=== PATIENT | male | born 1975 | race African-American/Black ===

== ENCOUNTER 2017-07-17 07:30 | Emergency (ER) | payer BC ==
[~2017-07-17] VITALS: Ht 189.2 cm; Wt 97.8 kg
[2017-07-17 07:45] VITALS: BP 135/90
--- NOTE | 2017-07-17 08:01 | PHYS DOC ---
Past Medical History Past Medical History: No Pertinent History Past Surgical History: No Surgical History Alcohol Use: Occasionally Drug Use: None Adult General Chief Complaint Chief Complaint: LOWER BACK PAIN OR INJURY HPI HPI Patient is a 42 year old male who presents with right side lower back pain that is shooting down his buttock and into his leg. He states that this began 2 days ago and has worsened. Tylenol has not helped with the pain. He states that he does not remember having a specific injury but does work as a [employer] and has been lifting heavy patients over the past week. He denies urinary retention, foot drop or any other illness or injury. Review of Systems Review of Systems Constitutional: Denies fever or chills [] Respiratory: Denies cough or shortness of breath [] Cardiovascular: No additional information not addressed in HPI [] GI: Denies abdominal pain, nausea, vomiting, bloody stools or diarrhea [] : Denies dysuria or hematuria [] Musculoskeletal: See history of present illness Integument: Denies rash or skin lesions [] Neurologic: Denies headache, focal weakness or sensory changes [] Endocrine: Denies polyuria or polydipsia [] Allergies Allergies Allergies Coded Allergies Type Severity Reaction Last Updated Verified No Known Drug Allergies 01/23/14 No Physical Exam Physical Exam Constitutional: Well developed, well nourished, no acute distress, non-toxic appearance. [ Neck: Normal range of motion, no tenderness, supple, no stridor. [] Cardiovascular:Heart rate regular rhythm, no murmur [] Lungs & Thorax: Bilateral breath sounds clear to auscultation [] Abdomen: Bowel sounds normal, soft, no tenderness, no masses, no pulsatile masses. [] Skin: Warm, dry, no erythema, no rash. [] Back:Tenderness over SI joint extending into the right buttock, pushes and pulls normal and equal, no CVA tenderness. [] Extremities: No tenderness, no cyanosis, no clubbing, ROM intact, no edema. [] Neurologic: Alert and oriented X 3, normal motor function, normal sensory function, no focal deficits noted. [] Psychologic: Affect normal, judgement normal, mood normal. [] Current Patient Data Vital Signs Vital Signs Date Time Temp Pulse Resp B/P (MAP) Pulse Ox O2 Delivery O2 Flow Rate FiO2 07/17/17 07:45 98.2 77 18 96 Room Air 98.2 EKG EKG [] Radiology/Procedures Radiology/Procedures [] Course & Med Decision Making Course & Med Decision Making Pertinent Labs and Imaging studies reviewed. (See chart for details) []1. Sciatica She was placed on a Medrol Dosepak and a small amount of pain medication and told Medrol starts working to reduce inflammation. He was given a work note for 3 days. He was given instructions on pain medication and instructed not to drive or operate heavy machinery. He is to follow-up with his primary care provider in one week if not improving or return to the ED if worsening. Dragon Disclaimer Dragon Disclaimer This electronic medical record was generated, in whole or in part, using a voice recognition dictation system. Departure Departure Referrals: NON,STAFF (PCP) Scripts Hydrocodone/Apap 5-325 (NORCO 5-325 TABLET) 1 Each Tablet 1 TAB PO PRN Q6HRS Y for PAIN, #6 TAB 0 Refills Prov: LISA LENTZ APRN 07/17/17 Methylprednisolone (MEDROL) 4 Mg Tab.ds.pk 1 PKG PO UD, #1 PKG Prov: LISA LENTZ APRN 07/17/17 LISA LENTZ APRN Jul 17, 2017 08:01
[2017-07-17] MEDS ORDERED: METH4TAB2 PO (08:10)
[2017-07-17] MEDS ORDERED: HYDR-971 PO (08:10)
== END 2017-07-17 08:30 | disposition home or self-care (01) ==
LOC: ER 07:30
DX: M54.41 Lumbago with sciatica, right side (principal)
CPT/HCPCS: 99283

== ENCOUNTER 2018-12-06 09:56 | Emergency (ER) | payer OTHER ==
[~2018-12-06] VITALS: Ht 188 cm; Wt 97.5 kg
[~2018-12-06 09:56] MED LIST: HYDR-3164 PO; METH4TAB2 PO
[2018-12-06 10:09] VITALS: BP 142/80
[2018-12-06] MEDS ORDERED: METH4TAB2 PO (10:56)
[2018-12-06] MEDS ORDERED: ORPH100T PO (10:56)
--- NOTE | 2018-12-06 10:57 | PHYS DOC ---
Past Medical History Past Medical History: Sciatica Past Surgical History: No Surgical History Alcohol Use: Occasionally Drug Use: None Adult General Chief Complaint Chief Complaint: LOWER BACK PAIN OR INJURY HPI HPI Patient is a 43 year old AA male who presents to emergency room with complaints of left low back pain that radiates to his left hip and thigh for the last 3 days. Patient states he has a history of sciatica and reports that the symptoms are identical to the symptoms he experiences when his sciatica flares up. Patient states he is a [employer] and on Wednesday he had work shortstaffed and do a lot of heavy lifting that is when the pain initially began. He denies any injury, numbness, tingling, weakness, or fall. Patient states that the pain increases when he lifts his leg or ambulates. He denies any urinary symptoms including dysuria, frequency, hematuria, abdominal pain, nausea, vomiting, diarrhea, fever, cough, shortness of breath, saddle anesthesia, or loss of bowel or bladder control. Currently he rates his pain a 9 out of 10 on the pain scale, he states that previously he has been prescribed steroids and muscle relaxers and that helps. Review of Systems Review of Systems Constitutional: Denies fever or chills [] HENT: Denies nasal congestion or sore throat [] Respiratory: Denies cough or shortness of breath [] Cardiovascular: No additional information not addressed in HPI [] GI: Denies abdominal pain, nausea, vomiting, or diarrhea [] : Denies dysuria or hematuria [] Musculoskeletal: See HPI Integument: Denies rash or skin lesions [] Neurologic: Denies headache, focal weakness or sensory changes [] Allergies Allergies Allergies Coded Allergies Type Severity Reaction Last Updated Verified No Known Drug Allergies 01/23/14 No Physical Exam Physical Exam Constitutional: Well developed, well nourished, no acute distress, non-toxic appearance. [] HENT: Normocephalic, atraumatic, bilateral external ears normal, nose normal. [ ] Eyes: conjunctiva normal, no discharge. [] Neck: Normal range of motion, no stridor. [] Skin: Warm, dry, no erythema, no rash. [] Back: No bony tenderness, L lumbar paraspinal tenderness, no crepitus or deformity, L straight leg lift positive for increased pain Extremities: No cyanosis, no clubbing, ROM intact Neurologic: Alert and oriented X 3, normal motor function, normal sensory function, no focal deficits noted. [] Psychologic: Affect normal, judgement normal, mood normal. [] Current Patient Data Vital Signs Vital Signs Date Time Temp Pulse Resp B/P (MAP) Pulse Ox O2 Delivery O2 Flow Rate FiO2 12/06/18 10:09 97.8 73 16 142/80 (100) 99 Room Air 97.8 EKG EKG [] Radiology/Procedures Radiology/Procedures [] Course & Med Decision Making Course & Med Decision Making Pertinent Labs and Imaging studies reviewed. (See chart for details) [] Dragon Disclaimer Dragon Disclaimer This electronic medical record was generated, in whole or in part, using a voice recognition dictation system. Departure Departure Impression: Primary Impression: Left-sided low back pain with left-sided sciatica Disposition: HOME, SELF-CARE Condition: STABLE Referrals: NO PCP (PCP) Patient Instructions: Sciatica with [facility] Additional Instructions: Fill the prescriptions and use them as directed, activity as tolerated. Off work for the next 1-2 days. Follow-up with your primary care doctor symptoms persist, return to the ER symptoms worsen. Scripts Orphenadrine Citrate (ORPHENADRINE CITRATE) 100 Mg Tablet.er 100 MG PO BID PRN for PAIN for 10 Days, #20 TAB.SR 0 Refills Prov: RANDAL DENIS APRN 12/06/18 Methylprednisolone (MEDROL) 4 Mg Tab.ds.pk 1 PKG PO UD, #1 PKG 0 Refills Prov: RANDAL DENIS APRN 12/06/18 Problem Qualifiers Primary Impression: Left-sided low back pain with left-sided sciatica Chronicity: acute Qualified Codes: M54.42 - Lumbago with sciatica, left side RANDAL DENIS APRN Dec 06, 2018 10:57
== END 2018-12-06 11:12 | disposition home or self-care (01) ==
LOC: ER 09:56
DX: M54.42 Lumbago with sciatica, left side (principal)
CPT/HCPCS: 99283

== ENCOUNTER 2020-12-19 07:16 | Emergency (ER) | payer SELFPAY ==
[~2020-12-19] VITALS: Ht 188 cm; Wt 92.0 kg
[~2020-12-19 07:16] MED LIST changes: +ORPH100T PO
[2020-12-19 07:20] VITALS: BP 136/72
--- NOTE | 2020-12-19 07:24 | ED.ADGEN ---
Past Medical History Past Medical History: Sciatica Past Surgical History: No Surgical History Smoking Status: Former Smoker Alcohol Use: Occasionally Drug Use: None General Adult EDM: Chief Complaint: SEXUALLY TRANSMITTED DISEASE HPI: HPI: Patient is a 45 year old male who arrives ambulatory to the emergency department complaining of penile discharge as well as discomfort. Patient reports waking this morning with discharge in his underwear. Patient also reports to some discomfort whenever he campers his bladder. Patient does state that he had 2 sexual partners within the last month however he is unaware of any known STD exposures. He denies any symptoms otherwise. He is awake, alert and nontoxic-appearing. Review of Systems: Review of Systems: Constitutional: Denies fever or chills. [] Eyes: Denies change in visual acuity. [] HENT: Denies nasal congestion or sore throat. [] Respiratory: Denies cough or shortness of breath. [] Cardiovascular: Denies chest pain or edema. [] GI: Denies abdominal pain, nausea, vomiting, bloody stools or diarrhea. [] : Penile discharge. Denies dysuria. [] Musculoskeletal: Denies back pain or joint pain. [] Integument: Denies rash. [] Neurologic: Denies headache, focal weakness or sensory changes. [] Endocrine: Denies polyuria or polydipsia. [] Lymphatic: Denies swollen glands. [] Psychiatric: Denies depression or anxiety. [] Family History: Family History: Noncontributory Current Medications: Current Medications Medications (Trade) Dose Ordered Sig/Jose Start Time Stop Time Status Last Admin Dose Admin Azithromycin (Zithromax) 1,000 mg 1X ONCE 12/19/20 07:30 12/19/20 07:32 DC 12/19/20 07:37 1,000 MG Ceftriaxone Sodium (Rocephin Im) 500 mg 1X ONCE 12/19/20 07:30 12/19/20 07:31 DC 12/19/20 07:37 500 MG Allergies: Allergies: Allergies Coded Allergies Type Severity Reaction Last Updated Verified No Known Drug Allergies 01/23/14 No Physical Exam: PE: Constitutional: Well developed, well nourished, no acute distress, non-toxic appearance. [] HENT: Normocephalic, atraumatic, bilateral external ears normal, oropharynx moist, no oral exudates, nose normal. [] Eyes: PERRLA, EOMI, conjunctiva normal, no discharge. [] Neck: Normal range of motion, no tenderness, supple, no stridor. [] Cardiovascular:Heart rate regular rhythm, no murmur [] Lungs & Thorax: Bilateral breath sounds clear to auscultation [] Abdomen: Bowel sounds normal, soft, no tenderness, no masses, no pulsatile masses. [] Skin: Warm, dry, no erythema, no rash. [] Back: No tenderness, no CVA tenderness. [] Extremities: No tenderness, no cyanosis, no clubbing, ROM intact, no edema. [] Neurologic: Alert and oriented X 3, normal motor function, normal sensory function, no focal deficits noted. [] Psychologic: Affect normal, judgement normal, mood normal. [] Current Patient Data: Labs: Laboratory Tests Test 12/19/20 07:20 Urine Collection Type Void Urine Color Yellow Urine Clarity Clear Urine pH 6.0 (<5.0-8.0) Urine Specific Bryan >=1.030 (1.000-1.030) Urine Protein Negative mg/dL (NEG-TRACE) Urine Glucose (UA) Negative mg/dL (NEG) Urine Ketones (Stick) Negative mg/dL (NEG) Urine Blood Negative (NEG) Urine Nitrite Negative (NEG) Urine Bilirubin Negative (NEG) Urine Urobilinogen Dipstick 1.0 mg/dL (0.2 mg/dL) Urine Leukocyte Esterase Small (NEG) Urine RBC 0 /HPF (0-2) Urine WBC 5-10 /HPF (0-4) Urine Squamous Epithelial Cells Few /LPF Urine Bacteria 0 /HPF (0-FEW) Urine Hyaline Casts Occasional /HPF Urine Mucus Mod /LPF Vital Signs: Vital Signs Date Time Temp Pulse Resp B/P (MAP) Pulse Ox O2 Delivery O2 Flow Rate FiO2 12/19/20 07:20 98.4 80 16 136/72 (93) 99 Room Air 98.4 EKG: EKG: [] Heart Score: Risk Factors: Risk Factors: DM, Current or recent (<one month) smoker, HTN, HLP, family history of CAD, obesity. Risk Scores: Score 0 - 3: 2.5% MACE over next 6 weeks - Discharge Home Score 4 - 6: 20.3% MACE over next 6 weeks - Admit for Clinical Observation Score 7 - 10: 72.7% MACE over next 6 weeks - Early Invasive Strategies Radiology/Procedures: Radiology/Procedures: [] Course & Med Decision Making: Course & Med Decision Making Pertinent Labs and Imaging studies reviewed. (See chart for details) [] Dragon Disclaimer: Kd Disclaimer: This electronic medical record was generated, in whole or in part, using a voice recognition dictation system. Departure Departure Impression: Primary Impression: Concern about STD in male without diagnosis Disposition: 01 DC HOME SELF CARE/HOMELESS Condition: GOOD Referrals: NO PCP (PCP) Patient Instructions: Sexually Transmitted Disease Additional Instructions: The patient is awake, alert and in no acute distress. Advised patient to follow-up with his primary care physician or the health department for a complete battery of tests as a relates to any possible sexually transmitted diseases. Have also advised that he speak with his sexual partners and advised that they be tested prior to any sexual activity. The patient has been advised to remain abstinent until this information is available. Should he develop any dysuria, abdominal pain or fevers and advised him to return. The patient understands and has agreed to do so. He is nontoxic-appearing and stable for discharge. MARICHUY JAMES DO Dec 19, 2020 07:24
[2020-12-19] MEDS ORDERED: cefTRIAXone IM 500 MG VIAL. IM ONE (07:30)
[2020-12-19] MEDS ORDERED: AZITHROMYCIN 250 MG TABLET. PO ONE (07:30)
[2020-12-19 07:43] LABS: BILIRUBIN,URINE NEGATIVE (NEG); CLARITY,URINE CLEAR; COLOR,URINE YELLOW; NITRITE,URINE NEGATIVE (NEG); PROTEIN,URINE NEGATIVE (NEG-TRACE)
[2020-12-19 08:01] LABS: BACTERIA,URINE 0 /HPF (0-FEW); HYALINE CASTS, URINE OCCASIONAL /HPF; RBC,URINE 0 /HPF (0-2)
== END 2020-12-19 08:06 | disposition home or self-care (01) ==
LOC: ER 07:16
DX: R36.9 Urethral discharge, unspecified (principal); Z20.2 Contact with and (suspected) exposure to infections with a predominantly sexual mode of transmission; Z87.891 Personal history of nicotine dependence
CPT/HCPCS: 81001; 87086; 87491; 87591; 96372; 99283; J0696

== ENCOUNTER 2021-08-12 07:41 | Emergency (ER) | payer SELFPAY ==
[~2021-08-12] VITALS: Ht 188 cm; Wt 90.0 kg
[2021-08-12] MEDS ORDERED: cefTRIAXone IM 500 MG VIAL. IM ONE (08:30)
[2021-08-12] MEDS ORDERED: AZITHROMYCIN 250 MG TABLET. PO ONE (08:30)
--- NOTE | 2021-08-12 08:34 | PHYS DOC ---
Past Medical History Past Medical History: No Pertinent History Past Surgical History: No Surgical History Smoking Status: Light Tobacco Smoker Alcohol Use: None Drug Use: None General Adult EDM: Chief Complaint: SEXUALLY TRANSMITTED DISEASE HPI: HPI: Patient is a 46 year old male who present to ER for evaluation of penile discharge with irritation for 2 days. Patient is worried about STD. Patient denies any abdominal pain, no nausea vomiting, no cough, no chest pain, no trouble breathing no fever. Patient has history of STD in the past, he would like a shot of antibiotic and some pills. Patient is sexually active Review of Systems: Review of Systems: Constitutional: Denies fever or chills. [] Eyes: Denies change in visual acuity. [] HENT: Denies nasal congestion or sore throat. [] Respiratory: Denies cough or shortness of breath. [] Cardiovascular: Denies chest pain or edema. [] GI: Denies abdominal pain, nausea, vomiting, bloody stools or diarrhea. [] : Positive for penile discharge and irritation Musculoskeletal: Denies back pain or joint pain. [] Integument: Denies rash. [] Neurologic: Denies headache, focal weakness or sensory changes. [] Endocrine: Denies polyuria or polydipsia. [] Lymphatic: Denies swollen glands. [] Psychiatric: Denies depression or anxiety. [] Heart Score: C/O Chest Pain: N/A Risk Factors: Risk Factors: DM, Current or recent (<one month) smoker, HTN, HLP, family history of CAD, obesity. Risk Scores: Score 0 - 3: 2.5% MACE over next 6 weeks - Discharge Home Score 4 - 6: 20.3% MACE over next 6 weeks - Admit for Clinical Observation Score 7 - 10: 72.7% MACE over next 6 weeks - Early Invasive Strategies Current Medications: Current Medications Medications (Trade) Dose Ordered Sig/Jose Start Time Stop Time Status Last Admin Dose Admin Azithromycin (Zithromax) 1,000 mg 1X ONCE 08/12/21 08:30 08/12/21 08:31 UNV Ceftriaxone Sodium (Rocephin Im) 500 mg 1X ONCE 08/12/21 08:30 08/12/21 08:31 UNV Allergies: Allergies: Allergies Coded Allergies Type Severity Reaction Last Updated Verified No Known Drug Allergies 01/23/14 No Physical Exam: PE: Constitutional: Well developed, well nourished, no acute distress, non-toxic appearance. [] HENT: Normocephalic, atraumatic. [] Cardiovascular:Heart rate regular rhythm, no murmur [] Lungs & Thorax: Bilateral breath sounds clear to auscultation [] Abdomen: Bowel sounds normal, soft, no tenderness, no masses, no pulsatile ma sses. [] ] Back: No tenderness, no CVA tenderness. [] Neurologic: Alert and oriented X 3, normal motor function, normal sensory function, no focal deficits noted. [] Psychologic: Affect normal, judgement normal, mood normal. [] Current Patient Data: Labs: Current Medications Medications (Trade) Dose Ordered Sig/Jose Route PRN Reason Start Time Stop Time Status Last Admin Dose Admin Ceftriaxone Sodium (Rocephin Im) 500 mg 1X ONCE IM 08/12/21 08:30 08/12/21 08:33 DC Azithromycin (Zithromax) 1,000 mg 1X ONCE PO 08/12/21 08:30 08/12/21 08:33 DC Vital Signs: Vital Signs Date Time Temp Pulse Resp B/P (MAP) Pulse Ox O2 Delivery O2 Flow Rate FiO2 08/12/21 08:00 97.9 120/70 (87) 100 Room Air 97.9 EKG: EKG: [] Radiology/Procedures: Radiology/Procedures: [] Course & Med Decision Making: Course & Med Decision Making Pertinent Labs and Imaging studies reviewed. (See chart for details) [] Dragon Disclaimer: Dragon Disclaimer: This electronic medical record was generated, in whole or in part, using a voice recognition dictation system. Departure Departure Impression: Primary Impression: STD (male) Disposition: HOME / SELF CARE / HOMELESS Condition: STABLE Referrals: NO PCP (PCP) Patient Instructions: Sexually Transmitted Disease Additional Instructions: Thank you for visiting our Emergency Department. We appreciate you trusting us with your care. If any additional problems come up don't hesitate to return to visit us. Please follow up with your primary care provider so they can plan additional care if needed and know about the problem that you had. If symptoms worsen come back to the Emergency Department. Any concerning symptoms that start such as chest pain, shortness of air, weakness or numbness on one side of the body, running high fevers or any other concerning symptoms return to the ER. Scripts Doxycycline Hyclate (DOXYCYCLINE HYCLATE) 100 Mg Capsule 1 CAP PO BID for 14 Days, #28 CAP Prov: TRINH GOLDMAN DO 08/12/21 TRINH GOLDMAN DO Aug 12, 2021 08:33
[2021-08-12] MEDS ORDERED: DOXY100C3 PO (08:38)
[2021-08-12 08:59] VITALS: BP 140/79
[2021-08-12 09:23] LABS: BILIRUBIN,URINE NEGATIVE (NEG); CLARITY,URINE CLEAR; COLOR,URINE AMBER; NITRITE,URINE NEGATIVE (NEG); PH,URINE 6.5 (<5.0-8.0); PROTEIN,URINE NEGATIVE (NEG-TRACE)
[2021-08-12 09:36] LABS: BACTERIA,URINE FEW /HPF (0-FEW); RBC,URINE 0 /HPF (0-2)
== END 2021-08-12 09:17 | disposition home or self-care (01) ==
LOC: ER 08:06
DX: A64 Unspecified sexually transmitted disease (principal); F17.200 Nicotine dependence, unspecified, uncomplicated
CPT/HCPCS: 81001; 87077; 87086; 87186; 87491; 87591; 96372; 99283; J0696

== ENCOUNTER 2021-09-09 03:02 | Emergency (ER) | payer SELFPAY ==
[~2021-09-09] VITALS: Ht 188 cm; Wt 93.2 kg
[~2021-09-09 03:02] MED LIST changes: +DOXY100C3 PO
[2021-09-09 03:50] VITALS: BP 118/72
--- NOTE | 2021-09-09 04:09 | PHYS DOC ---
Past Medical History Past Medical History: No Pertinent History Past Surgical History: No Surgical History Smoking Status: Never Smoker Alcohol Use: None Drug Use: None General Adult EDM: Chief Complaint: Toothache HPI: HPI: Patient is a 46-year-old male presenting for dental issues. Patient has known, chronic poor dental hygiene but admits yesterday having some generalized dental pain on right side of his mouth. Patient tried to sleep but ongoing tooth ache kept waking him from sleep. He ultimately came in as he noticed swollen portion of his mandible which concerned him for potential abscess. He has no other medical issues, denies any medications on a daily basis. No fever, obvious exudate or other concerning findings Review of Systems: Review of Systems: Fourteen body systems of review of systems have been reviewed. See HPI for pertinent positives and negative responses, other gaytan all other systems are negative, non-pertinent or non-contributory Heart Score: C/O Chest Pain: No Risk Factors: Risk Factors: DM, Current or recent (<one month) smoker, HTN, HLP, family history of CAD, obesity. Risk Scores: Score 0 - 3: 2.5% MACE over next 6 weeks - Discharge Home Score 4 - 6: 20.3% MACE over next 6 weeks - Admit for Clinical Observation Score 7 - 10: 72.7% MACE over next 6 weeks - Early Invasive Strategies Allergies: Allergies: Allergies Coded Allergies Type Severity Reaction Last Updated Verified No Known Drug Allergies 01/23/14 No Physical Exam: PE: General: Appears well, non toxic, and comfortable Skin: Warm, dry. Normal for ethnicity. Head: Atraumatic. EENT: PERRLA. Moist mucous membranes. Uvula midline. No trismus. Maintaining secretions. No phonation changes. No periapical abscess. There is mild facial swelling to right lateral portion of mandible near angle of the chin. Poor dentition globally with chronic but active appearing infected dental caries at teeth #5 and 28 without any obvious mass or abscess. No cervical lymphadenopathy Neck: Trachea midline. Normal ROM. No stridor. Respiratory: Normal WOB. No tachypnea. Cardiovascular: Normal peripheral perfusion. Musculoskeletal: Normal ROM. Neuro: Alert and oriented x 4. MAEE. Lymph: No cervical LAD. Psych: Normal affect and mood. Current Patient Data: Vital Signs: Vital Signs Date Time Temp Pulse Resp B/P (MAP) Pulse Ox O2 Delivery O2 Flow Rate FiO2 09/09/21 03:50 98.3 68 13 118/72 (87) 98 Room Air 98.3 EKG: EKG: [] Radiology/Procedures: Radiology/Procedures: [] Course & Med Decision Making: Course & Med Decision Making ABCs unremarkable HPI and comprehensive physical exam nonconcerning for any emergent or surgical issues No indication for further diagnostic ER workup, intervention, or hospitalization at this time Discussed most likely diagnosis of infected dental carry, patient given narcotic pain medication in ER and amoxicillin. Joint decision made to discharge with continued amoxicillin and after extensive risk benefit discussion regarding narcotic pain medication, short prescription of this Patient has access to care with a dentist for definitive management. Short-term pain medication written with instructions to contact local dentist immediately on office opening up this morning for definitive management. Strict return precautions discussed and understood by patient prior to ER departure Kd Disclaimer: Kd Disclaimer: This electronic medical record was generated, in whole or in part, using a voice recognition dictation system. Departure Departure Impression: Primary Impression: Infected dental caries Disposition: HOME / SELF CARE / HOMELESS Condition: STABLE Referrals: NO PCP (PCP) Additional Instructions: You were seen for dental pain. There not appear to be any infection at this time. Take Ibuprofen (600-800mg) and Tylenol (500-650mg) alternating every 4-6 hours to help with inflammation and pain. You have also been given a short-term prescription for narcotic pain medication that should be reserved for severe p ain only. Do not operate heavy machinery, drive or engage in other high risk behaviors while under the influence of such narcotic pain medications. Please take these pain medications as scheduled to avoid any potential adverse reactions of such medications such as respiratory depression and even . It is imperative you contact your dentist first thing in the morning to review ER visit today and need for definitive management. You should return to the ED if you develop worsening pain, fever > 101, swelling, redness, or any other new or concerning symptoms. Unfortunately, your pain is not likely to improve without seeing a dentist for further evaluation and treatment of your poor dentition and dental caries. Scripts Hydrocodone Bit/Acetaminophen (HYDROCODONE-APAP 5-325 ) 1 Tab Tablet 1 TAB PO PRN Q6HRS PRN for PAIN, #5 TAB 0 Refills Prov: HERSON ACUÑA DO 09/09/21 Amoxicillin (AMOXICILLIN) 500 Mg Capsule 1 CAP PO TID for 5 Days, #15 CAP Prov: HERSON ACUÑA DO 09/09/21 HERSON ACUÑA DO Sep 09, 2021 04:09
[2021-09-09] MEDS ORDERED: AMOX500C PO (04:20)
[2021-09-09] MEDS ORDERED: HYDR-2761 PO (04:20)
[2021-09-09] MEDS ORDERED: HYDROcodone/APAP 7.5/325MG 1 TAB TABLET PO ONE (04:30)
[2021-09-09] MEDS ORDERED: AMOXICILLIN 250 MG CAPSULE. PO ONE (04:30)
== END 2021-09-09 04:38 | disposition home or self-care (01) ==
LOC: ER 03:02
DX: K04.7 Periapical abscess without sinus (principal)
CPT/HCPCS: 99283

== ENCOUNTER 2021-12-29 07:13 | Emergency (ER) | payer SELFPAY ==
[~2021-12-29] VITALS: Ht 188 cm; Wt 92.7 kg
[~2021-12-29 07:13] MED LIST changes: +AMOX500C PO; +HYDR-2761 PO
[2021-12-29] MEDS ORDERED: LIDOCAINE 1% PF 2 ML VIAL. ONE (07:44)
[2021-12-29] MEDS ORDERED: AZITHROMYCIN 250 MG TABLET. PO ONE (07:45)
[2021-12-29] MEDS ORDERED: cefTRIAXone IM 500 MG VIAL. IM ONE (07:45)
[2021-12-29 07:55] LABS: BILIRUBIN,URINE NEGATIVE (NEG); CLARITY,URINE HAZY; COLOR,URINE YELLOW
[2021-12-29 07:56] LABS: NITRITE,URINE NEGATIVE (NEG); PROTEIN,URINE NEGATIVE (NEG-TRACE); UROBILINOGEN,URINE 0.2 mg/dL (0.2 mg/dL)
[2021-12-29 08:41] LABS: BACTERIA,URINE 0 /HPF (0-FEW)
[2021-12-29 09:07] VITALS: BP 123/90
--- NOTE | 2021-12-29 09:12 | PHYS DOC ---
Past Medical History Past Medical History: No Pertinent History Past Surgical History: No Surgical History Smoking Status: Never Smoker Alcohol Use: None Drug Use: None Adult General Chief Complaint Chief Complaint: PENIS PROBLEM HPI HPI Patient is a 46 year old male who presents with dysuria. Patient has not had any rashes or lesions that he has noticed but does admit to a new sexual partner. He is worried about STDs. No fever, nausea, vomiting or abdominal pain. No other complaints. Review of Systems Review of Systems Constitutional: Denies fever Eyes: Denies change in visual acuity or eye pain HENT: Denies sore throat Respiratory: Denies shortness of breath Cardiovascular: Denies chest pain GI: Denies abd pain : Denies dysuria Musculoskeletal: Denies back or extremity injury Integument: Denies rash or skin lesions Neurologic: Denies headache, focal weakness or sensory changes All other systems were reviewed and found to be within normal limits, except as documented in this note. Current Medications Current Medications Current Medications Medications (Trade) Dose Ordered Sig/Jose Start Time Stop Time Status Last Admin Dose Admin Azithromycin (Zithromax) 1,000 mg 1X ONCE 12/29/21 07:45 12/29/21 07:46 DC 12/29/21 07:49 1,000 MG Ceftriaxone Sodium (Rocephin Im) 500 mg 1X ONCE 12/29/21 07:45 12/29/21 07:46 DC 12/29/21 07:49 500 MG Lidocaine HCl (Xylocaine-Mpf 1% 2ml Vial) 2 ml STK-MED ONCE 12/29/21 07:44 12/29/21 07:45 DC Allergies Allergies Allergies Coded Allergies Type Severity Reaction Last Updated Verified No Known Drug Allergies 01/23/14 No Physical Exam Physical Exam Constitutional: Well developed, well nourished, no acute distress, non-toxic appearance. HENT: Normocephalic, atraumatic, bilateral external ears normal, mucosa moist, nose normal. Eyes: EOMI, conjunctiva normal, no discharge. Neck: Normal range of motion, supple, no stridor, no meningeal signs. Cardiovascular: Regular rate and rhythm Lungs & Thorax: Bilateral breath sounds clear to auscultation Abdomen: Soft, no tenderness or obvious masses Skin: Warm, dry, no erythema, no rash. Extremities: No tenderness, no cyanosis, no clubbing, ROM intact, no edema. Neurologic: Alert and oriented, normal motor function, normal sensory function, no focal deficits noted. Psychologic: Affect normal, judgement normal, mood normal. Current Patient Data Vital Signs Vital Signs Date Time Temp Pulse Resp B/P (MAP) Pulse Ox O2 Delivery O2 Flow Rate FiO2 12/29/21 07:13 97.7 88 17 139/84 (102) 100 Room Air 97.7 Lab Values Laboratory Tests Test 12/29/21 07:26 Urine Collection Type Unknown Urine Color Yellow Urine Clarity Hazy Urine pH 6.0 (<5.0-8.0) Urine Specific [place] >=1.030 (1.000-1.030) Urine Protein Negative mg/dL (NEG-TRACE) Urine Glucose (UA) Negative mg/dL (NEG) Urine Ketones (Stick) Negative mg/dL (NEG) Urine Blood Negative (NEG) Urine Nitrite Negative (NEG) Urine Bilirubin Negative (NEG) Urine Urobilinogen Dipstick 0.2 mg/dL (0.2 mg/dL) Urine Leukocyte Esterase Small (NEG) Urine RBC 11-20 /HPF (0-2) Urine WBC 11-20 /HPF (0-4) Urine Squamous Epithelial Cells Occ /LPF Urine Bacteria 0 /HPF (0-FEW) Urine Mucus Slight /LPF EKG EKG [] Radiology/Procedures Radiology/Procedures [] Course & Med Decision Making Course & Med Decision Making Pertinent Labs and Imaging studies reviewed. (See chart for details) [] Is a 46-year-old male with dysuria. Urinalysis demonstrates few white cells, no bacteria. He was treated for GC chlamydia with ceftriaxone and Zithromax. We will have him follow-up with his primary care physician and send off the GC/chlamydia PCR for the urine, he is stable for discharge. Dragon Disclaimer Dragon Disclaimer This electronic medical record was generated, in whole or in part, using a voice recognition dictation system. Departure Departure Impression: Primary Impression: Dysuria Additional Impression: STI (sexually transmitted infection) Disposition: HOME / SELF CARE / HOMELESS Condition: STABLE Referrals: NO PCP (PCP) Patient Instructions: Chlamydia Test, Chlamydia, Females and Males, Dysuria-Brief, Gonorrhea Culture, Gonorrhea, Females and Males Problem Qualifiers TIM RASHEED MD Dec 29, 2021 09:12
== END 2021-12-29 09:18 | disposition home or self-care (01) ==
LOC: ER 07:13
DX: A64 Unspecified sexually transmitted disease (principal); R30.0 Dysuria
CPT/HCPCS: 81001; 87086; 87491; 87591; 96372; 99283; J0696